=== PATIENT | male | born 1965 | race Two or more races ===

== ENCOUNTER 2025-04-16 09:05 | Day surgery (SDC) | payer MEDICAID, SELFPAY ==
[2025-04-10 07:39] VITALS: BMI 28.1
[2025-04-10 10:32] LABS: Basophils # (Auto) 0.0 Thou/mm3 (0.0-0.2); Basophils % (Auto) 1 % (0-2.5); Eosinophils # (Auto) 0.1 Thou/mm3 (0.0-0.5); Eosinophils % (Auto) 1 % (0-10); Hematocrit 41.7 % (41.0-53.0); Hemoglobin 13.9 g/dL (13.5-16.0); Immature Granulocytes Auto 0.01 Thou/mm3 (0.00-0.00); Lymphocytes # (Auto) 1.0 Thou/mm3 (1.0-4.8); Lymphocytes % (Auto) 16 % (10-50); Mean Corpuscular HGB Conc 33.3 g/dl (31.0-37.0); Mean Corpuscular Hemoglobin 29.6 pg (25.0-35.0); Mean Corpuscular Volume 89 fL (80-100); Monocytes # (Auto) 0.4 Thou/mm3 (0.0-0.8); Monocytes % (Auto) 6 % (0-12); Neutrophils # (Auto) 4.6 Thou/mm3 (1.8-7.7); Neutrophils % (Auto) 76 % (37-80); Nucleated Red Blood Cell # 0.00 Thou/mm3 (0.00-0.00); Nucleated Red Blood Cell % 0 /100 WBC (0); Platelet Count 268 Thou/mm3 (140-440); RDW Standard Deviation 39.3 fL (35.1-43.9); Red Blood Count 4.70 Miln/mm3 (4.50-5.90); White Blood Count 6.1 Thou/mm3 (3.8-10.6)
[2025-04-10 10:50] LABS: Alanine Aminotransferase 19 U/L (10-49); Albumin, Serum 4.8 gm/dL (3.5-5.0); Albumin/Globulin Ratio 1.7 (1.2-2.2); Alkaline Phosphatase 84 U/L (46-116); Anion Gap 7 (7-16); Aspartate Amino Transferase 23 U/L (0-34); BUN/Creatinine Ratio 18 Ratio (12-20); Bilirubin,Total 0.6 mg/dL (0.3-1.2); Blood Urea Nitrogen 16 mg/dL (9-23); Calcium 9.6 mg/dL (8.3-10.6); Calcium (Corrected) 9.6 mg/dL (8.5-10.1); Carbon Dioxide 27.7 mMol/L (20.0-31.0); Chloride 108 mMol/L (98-107); Creatinine (Component) 0.9 mg/dL (0.6-1.3); Estimated Creatinine Clearance 97.4 mL/min (>60); Globulin 2.8 gm/dL (2.3-3.5); Glucose 118 mg/dL (74-106); Osmolality,Calculated 287 (275-295); Potassium 4.8 mMol/L (3.4-5.1); Sodium 143 mMol/L (136-145); Total Protein 7.6 gm/dL (5.7-8.2); eGFR > 60 See Note
[2025-04-16] VITALS (9 sets, daily range): BP systolic 108–154; BP diastolic 62–94; PULSE 68–83; RESP 12–20; TEMP 36.4–36.7; O2SAT 95–99; BMI 27.6
--- NOTE | 2025-04-16 09:20 | EKG_ITS ---
[facility] Test Date: 2025-04-16 Pat Name: ARSH DYE Department: Room: - Gender: Male [employer] Hel[employer]: ANGEL : 1965 Requested By: Steve Vyas Order Number: [id number] Reading MD: Steve Vyas Measurements Intervals [place] Rate: 65 P: 50 TN: 156 QRS: 8 QRSD: 101 T: 42 QT: 402 QTc: 420 Interpretive Statements SINUS RHYTHM No previous ECG available for comparison /[id number]
--- NOTE | 2025-04-16 13:25 | ESOP_ITS ---
Date of Procedure 04/16/25 Pre Op Diagnosis Incarcerated right inguinal hernia Post Op Diagnosis Incarcerated right inguinal hernia Procedure Right inguinal hernia repair with mesh Findings Indirect right inguinal hernia with incarcerated small bowel Procedure Description Patient brought into the operating room in supine position. After ad ministration of general endotracheal anesthesia, patient's right groin was shaved, prepped and draped in standard surgical manner. The right inguinal crease was anesthetized with half percent Marcaine. An approximately 6 cm incision was made and dissection was carried to subcutaneous tissue. The Sarita's fascia was divided and the external oblique aponeurosis was opened towards the external ring. The hernia sac and the spermatic cord structures were from the posterior aspect of the external oblique aponeurosis at the level of pubic tubercle. The hernia sac was then meticulously dissected off the spermatic cord structures at the level of internal ring. Patient was noted to have indirect right inguinal hernia sac. The hernia sac was opened and the contents that were incarcerated small bowel, reduced. The hernia sac was then ligated at the level of internal ring. The floor of inguinal canal was then reconstructed with ultra Pro proceed mesh. The mesh was secured with running 2- 0 Prolene suture. The mesh secured medially to the pubic tubercle, superiorly into the conjoin tendon, inferiorly and to the shelving edge of inguinal ligament, the mesh was placed around the cord structures and tacked under the external oblique aponeurosis laterally. The area was copiously and thoroughly washed and irrigated, all the fluids were suctioned and the suction fluid returned clear. Hemostasis was adequate and satisfactory. External oblique aponeurosis was closed with running 2-0 Vicryl suture, and Sarita's fascia was closed with interrupted suture using 3-0 Vicryl. The incision was closed with 4-0 Monocryl in subcutaneous fashion. Instruments, needles and sponge counts were reported to be correct ?2. Patient tolerated the procedure well. He was extubated, breathing spontaneously and without difficulty and was transferred to postanesthesia care in stable condition. Anesthesia GETA and local Pathology / specimen Other (Hernia sac) Estimated Blood Loss 10 Condition Stable Disposition PACU Surgeon Rocky Alston MD Surgical Staff Operation Date: 04/16/25 13:00 Case Staff Anesthesiologist: Stephen Patel RN First Assistant: Arabella Dennison
--- NOTE | 2025-04-16 13:26 | SUR.PHASEI ---
1326: Pt. arrived with oral airway in place, vitals stable, breathing unlabored, no sign of distress, dressing to lower right ABD CDI, no active bleed noted, report received from MD Patel and Sravanthi GIORDANO.
[2025-04-16] MEDS: MORPHINE SULF INJ 4 MG/ML VIAL 3 MG IV (13:43)
[2025-04-16] MEDS: HYDROcodone/APAP 5/325 TABLET 1 TAB PO (14:05)
--- NOTE | 2025-04-16 14:40 | SUR.PHASEII ---
1440: Pt. AAOx4, vitals stable, breathing unlabored, no complaint of pain or nausesa, dressing to lower right ABD CDI, no active bleed noted, pt. tolerated sips of water well, pt. ambulated to wheelchair with steady gait and no assist, no complications. Gave discharge instructions in bulgarian per pt. request to the pt. and his , both verbalized understanding and had no further questions. Pt. left with all personal belongings.
== END 2025-04-16 14:40 | disposition home or self-care (01) ==
PROVIDERS: Anesthesiology; PCP Family Medicine; Referring Provider Surgery; Visit Provider Surgery
PROC: (CPT 49507; principal; 2025-04-16 12:45)
DX: K40.30 Unilateral inguinal hernia, with obstruction, without gangrene, not specified as recurrent (principal); E78.00 Pure hypercholesterolemia, unspecified; I10 Essential (primary) hypertension; Z79.899 Other long term (current) drug therapy
CPT/HCPCS: 49507; 36415; 85025; 93005; A4217; A4649; C1781; J0131; J0690; J1100; J1885; J2250; J2270; J2405; J2704; J3010; J3490; A9270

== ENCOUNTER → 2025-04-17 | Outpatient (CLI) | payer MEDICAID, SELFPAY ==
--- NOTE | 2025-04-17 10:30 | ECHO_ITS ---
Patient Info Name: Harshal Taveras Age: 60 years : 1965 Gender: Male Ht: 178 cm Wt: 84 kg BSA: 2.05 m2 BP: 130 / 78 mmHg HR: 64 bpm Heart Rhythm: Sinus Rhythm Exam Date: 04/17/2025 11:06 AM Admit Date: 04/17/2025 Site: [facility] Room Number: ECHO Patient Status: O Technical Quality: Fair Exam Type: CA echo doppler complete Waste Collection Driver: Nedra Mccarty Ordering Physician: Ru Pleitez Referring Physician: Ru Pleitez Study Info Indications Essential (primary) hypertension - Primary Location: SDIM Left Ventricular Outflow Tract Name Value Normal LVOT 2D LVOT Diameter 2.0 cm LVOT Doppler LVOT Peak Velocity 82 cm/s LVOT Mean Gradient 1 mmHg LVOT VTI 19 cm LVOT VTI/AV VTI Ratio 0.8 LVOT Stroke Volume 59 ml Pulmonic Valve Name Value Normal PV Doppler PV Peak Velocity 132 cm/s PV Regurgitation Doppler UT Peak End Diastolic Velocity 100 cm/s Mitral Valve Name Value Normal MV Doppler MV Decel Cooke 504 cm/s2 MV PHT 45 ms MV Area (PHT) 4.9 cm2 4.0-5.0 MV Diastolic Function MV E Peak Velocity 78 cm/s MV A Peak Velocity 72 cm/s MV E/A 1.1 MV Annular TDI MV Septal e' Velocity 7.3 cm/s MV E/e' (Septal) 10.7 MV Lateral e' Velocity 12.0 cm/s MV E/e' (Lateral) 6.5 MV e' Average 9.65 cm/s MV E/e' (Average) 8.6 Tricuspid Valve Name Value Normal TV Regurgitation Doppler TR Peak Velocity 181 cm/s Estimated PAP/RSVP RA Pressure 3 mmHg <=5 PA Systolic Pressure 16 mmHg <36 RV Systolic Pressure 16 mmHg <36 Aortic Valve Name Value Normal AV 2D/MM AV Cusp Sep (MM) 1.1 cm AV Doppler AV Peak Velocity 131 cm/s AV Mean Gradient 3 mmHg AV VTI 25 cm AV Area (Cont Eq VTI) 2.4 cm2 >=3.0 AV Area (Cont Eq Jordan) 2.0 cm2 AV DI (Jordan) 0.62 AV Regurgitation 2D LVOT Area 3.1 cm2 Ventricles Name Value Normal LV Dimensions 2D/MM IVS Diastolic Thickness (2D) 1.1 cm 0.6-1.0 LVID Diastole (2D) 4.7 cm 4.2-5.8 LVIW Diastolic Thickness (2D) 1.0 cm 0.6-1.0 LVID Systole (2D) 3.0 cm 2.5-4.0 LVOT Diameter 2.0 cm LV Mass (2D Cubed) 175.83 g 88.00-224.00 LV Mass Index (2D Cubed) 86 g/m2 49-115 Relative Wall Thickness (2D) 0.43 <=0.42 IVS/LVIW Diastolic Thickness (2D) 1.10 0.00-1.50 LV Fractional Shortening/Ejection Fraction 2D/MM LV Fractional Shortening (2D) 36 % 25-43 LV EF (2D Teichholz) 66 % Atria Name Value Normal LA Dimensions LA Volume (4C A-L) 76 ml LA Volume (BP A-L) 69 ml Left Ventricle Left ventricular chamber dimension is normal. Left ventricular systolic function is normal with visually estimated ejection fraction of 60-65%. There is mild concentric hypertrophy noted in the left ventricle. Left ventricular segmental wall motion is normal. There is normal diastolic function in the left ventricle. Right Ventricle Right ventricular chamber dimension is normal. Right ventricular systolic function is normal. Left Atrium Left atrial chamber dimension is normal. Right Atrium Right atrial chamber dimension is normal. Aortic Valve The aortic valve is trileaflet. There is no aortic valve sclerosis. There is no aortic valve stenosis with a peak velocity of 131 cm/s, mean gradient of 3 mmHg, and aortic valve area of 2.4 cm2. There is no aortic valve regurgitation. Pulmonic Valve The pulmonic valve is normal. There is no pulmonic valve stenosis. There is trace pulmonic regurgitation. Mitral Valve The mitral valve has normal leaflets. There is no mitral valve stenosis. There is trace mitral valve regurgitation. Tricuspid Valve The tricuspid valve leaflets are normal. There is no tricuspid valve stenosis. There is trace tricuspid valve regurgitation. No pulmonary hypertension, estimated pulmonary arterial systolic pressure is 16 mmHg and systemic blood pressure of 130 mmHg in systole. Pericardium/Pleural The pericardium appears normal. There is no pericardial effusion. No pleural effusion visualized. Inferior Vena Cava Normal inferior vena cava with >50% collapse upon inspiration consistent with normal right atrial pressure, 3 mmHg. Aorta The aortic measurements are indexed to age and body surface area. The aortic root at the sinus of Valsalva is not well visualized. The prox ascending aorta is not well visualized. Summary 1. Left ventricle size is normal and systolic function is normal. Estimated ejection fraction is 60-65%. There is normal diastolic function. 2. Right ventricle chamber size is normal and systolic function is normal. Estimated RVSP is 16 mmHg. 3. There is trace mitral valve regurgitation. 4. There is trace tricuspid valve regurgitation. 5. trace pulmonic valve regurgitation. 6. Normal IVC with estimated RA pressure 3 mmHg. Report Signatures Finalized by Rigoberto Baig on 04/18/2025 08:44 AM
== END | disposition home or self-care (01) ==
LOC: SDIM 10:34
PROVIDERS: PCP Family Medicine; Referring Provider Family Medicine; Visit Provider Family Medicine
DX: I08.1 Rheumatic disorders of both mitral and tricuspid valves (principal)
CPT/HCPCS: 93306